=== PATIENT | male | born 1960 | race Caucasian/White ===

== ENCOUNTER → 2021-07-23 | Outpatient (CLI) | payer OTHER, MEDICAID ==
--- NOTE | 2021-07-23 12:26 | RAD ---
EXAM: Chest, 2 views. HISTORY: Tobacco use. COMPARISON: None. FINDINGS: 2 views of chest are obtained. There is no infiltrate, pleural effusion or pneumothorax. Th e heart is normal in size. There are incidental bridging and partially bridging anterior osteophytes throughout the thoracic spine. IMPRESSION: No acute pulmonary finding. Electronically signed by: Candy Pitt MD (07/23/2021 12:23 PM) [id number]
== END ==
LOC: RAD 11:50
PROVIDERS: ATTEND Internal Medicine
DX: M25.78 Osteophyte, vertebrae (principal); Z72.0 Tobacco use
CPT/HCPCS: 71046